=== PATIENT | male | born 1965 | race Caucasian/White ===

== ENCOUNTER → 2020-12-03 | Outpatient (CLI) | payer BC, OTHER | LOC: KOH-I 11:56 | DX: Z12.2 Encounter for screening for malignant neoplasm of respiratory organs (principal); F17.210 Nicotine dependence, cigarettes, uncomplicated; R91.8 Other nonspecific abnormal finding of lung field | CPT/HCPCS: 71271 ==

== ENCOUNTER → 2021-04-13 | Outpatient (CLI) | payer BC | LOC: KOH-I 12:17 | DX: M79.661 Pain in right lower leg (principal); M79.604 Pain in right leg; I73.9 Peripheral vascular disease, unspecified; F17.200 Nicotine dependence, unspecified, uncomplicated; E78.5 Hyperlipidemia, unspecified | CPT/HCPCS: 93971 ==

== ENCOUNTER → 2022-01-23 | Outpatient (CLI) | payer BC | LOC: KOH-I 11:00 | DX: F17.210 Nicotine dependence, cigarettes, uncomplicated (principal); R91.8 Other nonspecific abnormal finding of lung field | CPT/HCPCS: 71271 ==

== ENCOUNTER → 2022-04-27 | Outpatient (CLI) | payer BC | LOC: HEART 5 03-28 09:00 | DX: R06.02 Shortness of breath (principal); I25.10 Atherosclerotic heart disease of native coronary artery without angina pectoris; I51.7 Cardiomegaly | CPT/HCPCS: 78452; 93306; A9502 ==